=== PATIENT | male | born 1945 | race African-American/Black ===

== ENCOUNTER 2024-12-23 12:00 | Day surgery (SDC) | payer OTHER ==
[2024-12-18 15:19] LABS: Absolute Eosinophils 0.1 K/uL (0-0.5); Absolute Lymphocytes (CBC) 1.7 K/uL (0.7-4.9); Absolute Monocytes 0.3 K/uL (0.1-1.3); Absolute Neutrophil 3.4 K/uL (1.8-8.0); Basophils % 0.4 % (0-1.3); Eosinophils % 1.6 % (0-4.4); Hematocrit 36.3 % (39.6-49.0); Hemoglobin 12.3 g/dL (13.6-17.9); Lymphocytes % 30.6 % (15.3-44.8); MCH 28.7 pg (27.0-35.0); MCV 84.6 fL (80-100); MPV 8.8 fL (7.6-11.3); Monocytes % 5.9 % (3.3-12.3); Neutrophils % 61.5 % (41.7-73.7); Platelets 199 thou/uL (152-406); RBC Red Blood Cell Count 4.29 M/uL (4.33-5.43); Red Cell Distribution Width 16.7 % (12.1-15.2)
[2024-12-18 15:20] LABS: Anion Gap 6.7 mEq/L (5.0-15.0); PT Prothrombin Time 11.7 SECONDS (9.4-12.5); PTT, Activated Partial Thromb 35.4 SECONDS (24.3-36.9); Potassium 4.7 mEq/L (3.5-5.1); Protime INR 1.12
--- NOTE | 2024-12-18 17:24 | RAD REPORT ---
EXAMINATION: TWO VIEW CHEST XR CLINICAL INDICATION: Male, 79 years old. [facility] MAIN PRE OP. htn TECHNIQUE: 2 view radiographs of the chest were performed. COMPARISON: No prior exam. FINDINGS: The lungs are well inflated and clear. No pneumothorax or sizable effusion. The heart is normal in si ze. Mediastinal contours are unremarkable. IMPRESSION: No acute or significant abnormalities.
--- NOTE | 2024-12-19 13:40 | EKG ---
Test Date: 2024-12-18 Test Time: 15:06:47 Upper And Bottom Lacer Hand: [place] MEASUREMENT RESULTS: Intervals: Rate: 75 NM: 182 QRSD: 104 QT: 402 QTc: 448 Mcclave: P: 51 NM: 182 QRS: -41 T: 24 INTERPRETIVE STATEMENTS: Sinus rhythm with premature atrial complexes Left axis deviation Abnormal ECG No previous ECG available for comparison Electronically Signed On 12-19-24 13:38:24 EXTRACTIONS TECHNICIAN by Bobo Cordoba
[2024-12-23] MEDS ORDERED: NA CHLORIDE 0.9% 500 ML ONE (12:19)
[2024-12-23] MEDS ORDERED: HEPARIN 10,000 UNIT/10 ML VIAL IV ONE (13:53)
[2024-12-23] MEDS ORDERED: HEPA 1000U/500MLS 2,000 UNIT/1,000 ML BAG IV ONE (13:53)
[2024-12-23] MEDS ORDERED: HEPARIN 5000 UNIT/ML 1 ML VIAL ONE (13:54)
[2024-12-23] MEDS ORDERED: VERAPAMIL HCL 10 MG/4 ML VIAL IV ONE (13:54)
[2024-12-23] MEDS ORDERED: LIDOCAINE 1% 20 ML MDV ONE (13:54)
[2024-12-23] MEDS ORDERED: MIDAZOLAM HCL 2 MG/2 ML INJ ONE (13:54)
[2024-12-23] MEDS ORDERED: FENTANYL CITR 100 MCG/2 ML ONE (13:54)
[2024-12-23] MEDS ORDERED: ATROPINE SULF 1 MG/10 ML SYR IV ONE (13:55)
[2024-12-23] MEDS ORDERED: CLOPIDOGREL 75 MG TABLET ONE ×2 (14:43→15:21)
[2024-12-23] MEDS ORDERED: ASPIRIN 325 MG TAB ONE (14:43)
[2024-12-23] MEDS ORDERED: TICAGRELOR 90 MG TABLET PO ONE (14:44)
[2024-12-23 18:21] VITALS: BP 158/58; O2SAT 96
--- NOTE | 2024-12-23 19:59 | OP ---
Date of Procedure: 12/23/2024 Surgeon: SHARMAINE HUFFMAN Procedures Performed: 1. Selective cholangiogram. 2. Left heart catheterization. 3. Percutaneous coronary intervention of severe proximal to mid right coronary artery stenosis. I us ed 3.0 x 48 mm Synergy drug-eluting stent. Indication: Unstable angina. Access: Right radial artery 6-Belizean, closed with TR band. Complications: None. Bleeding: less than 50 mL. Anesthesia: Total sedation time was 1 hour and 10 minutes. Used fentanyl and Versed. Description Of Procedure: After risks, benefits, and alternatives were explained, the patient agreed to procedure and signed informed consent. [facility] prepped and draped in sterile fashion. I then accessed right radial artery using pediatric m icropuncture kit and placed 6-Belizean Slender sheath and took 5-Belizean [place] 4 catheter into aortic ro ot, engaged left main and then right coronary artery, took standard views and then over the wire, aor tic valve was crossed, measured the LVEDP. Pullback did not record any significant gradient. Then, gave systemic heparin to assure ACT level above 250 throughout the procedure. The patient is already on Plavix. He was given aspirin and took a 6-[place]izean JR4 guide with side holes into the aortic root over a J-wire, engaged the RCA, and took Runthrough wire to the RCA, placed it distally, and using a 3.0 balloon compliant, lesion was pre-dilated and expanded very well and then placed a 3.0 x 48 mm Sy nergy drug-eluting stent all the way from the mid to ostium of the RCA. Excellent expansion at the e nd. Excellent results. The wire was removed. Final angiogram was satisfactory and removed the guid e and the sheath and placed TR band with good hemostasis. Findings: 1. Left main is normal. 2. LAD: Proximal 60%, mid 60% stenosis. Diagonal branch 1 has 60% proximally. The rest of the LAD is normal. 3. Left circumflex: Proximal to mid 30% to 40% stenosis. Rest of it is normal. 4. RCA: It is large and dominant with proximal 60%, mid 80%, status post successful PCI of both and the PDA has diffuse 30% stenosis. PLB is normal. 5. LVEDP is normal at 10 mmHg. Conclusions: 1. Severe RCA stenosis, status post successful PCI. 2. Moderate LAD stenosis. Plan: Stress test in 3 months and periodically after that and continue aspirin, Plavix, and high-dos e statin. SR/MODL Voice ID: [id number] Report ID: [id number]
== END 2024-12-23 18:28 | disposition home or self-care (01) ==
LOC: CCL 12:00
PROVIDERS: ATTEND Internal Medicine
DX: I25.110 Atherosclerotic heart disease of native coronary artery with unstable angina pectoris (principal); I34.0 Nonrheumatic mitral (valve) insufficiency; I73.9 Peripheral vascular disease, unspecified; I10 Essential (primary) hypertension; E11.9 Type 2 diabetes mellitus without complications; E78.5 Hyperlipidemia, unspecified; Z79.899 Other long term (current) drug therapy
CPT/HCPCS: 93005; 85025; 80048; 36415; 85610; 82947; 85347; 85730; 71046; 93458; 76937; C1893; Q9967; C1725; C9600; J1644; J2003; J2250; J3010; J7040; 99152; 99153; J0461